=== PATIENT | male | born 1945 | race Caucasian/White ===

== ENCOUNTER 2017-11-02 23:35 | Emergency (ER) | payer OTHER ==
[~2017-11-02] VITALS: Ht 180.3 cm; Wt 64.9 kg
[2017-11-03 00:39] LABS: Basophils # (auto) 0.1 uL; Basophils % (auto) 1.5 % (0.0-2.0); Eosinophils # (auto) 0.1 uL; Eosinophils % (auto) 2.1 % (0.0-7.0); Hematocrit 35.2 % (41.0-53.0); Hemoglobin 11.9 g/dL (13.5-17.5); Lymphocytes # (auto) 1.3 uL; Lymphocytes % (auto) 18.6 % (10.0-50.0); Mean Corpuscular Hgb Conc. 33.8 g/dL (32.0-36.0); Mean Corpuscular Volume 91.5 fL (80.0-100.0); Monocytes # (auto) 0.6 uL; Monocytes % (auto) 8.5 % (0.0-12.0); Neutrophils # (auto) 4.8 uL; Neutrophils % (auto) 69.3 % (37.0-80.0); Platelet Count (auto) 226 10^3/uL (140-450); Red Blood Cells 3.84 10^6/uL (4.5-5.90); Red Cell Distribution Width 13.9 % (11.8-14.3); White Blood Cell 6.9 10^3/uL (4.4-10.8)
[2017-11-03 00:53] LABS: Alanine Aminotransferase 29 U/L (16-61); Albumin 2.8 g/dL (3.4-5.0); Anion Gap 7 (5-15); Aspartate Aminotransferase 14 U/L (15-37); BUN/Creatinine Ratio 16.9; Blood Urea Nitrogen 24 mg/dL (7-18); Calcium 8.3 mg/dL (8.5-10.1); Carbon Dioxide 26 mmol/L (21-32); Chloride 109 mmol/L (98-107); GFR African American 63 mL/min; GFR Non-African American 52 mL/min; Glucose 114 mg/dL (74-106); Potassium 3.8 mmol/L (3.5-5.1); Sodium 142 mmol/L (136-145)
[2017-11-03 00:54] LABS: INR 0.98 (0.9-1.15); Partial Thromboplastin Time 23.5 sec (22.64-33.71); Prothrombin Time 10.7 sec (9.37-12.3)
[2017-11-03 00:58] LABS: Alkaline Phosphatase 136 U/L (45-117); Bilirubin, Total 0.4 mg/dL (0.2-1.0); Total Protein 6.4 g/dL (6.4-8.2)
[2017-11-03] MEDS ORDERED: SODIUM CHLORIDE 0.9% 1,000 ML IV ONE (02:15)
[2017-11-03 02:25] LABS: Urine Bacteria NONE SEEN /hpf (None Seen); Urine Blood Negative /uL (Negative); Urine Specific Gravity 1.012 (1.001-1.035); Urine WBC 1 /hpf (0 - 3)
[2017-11-03] MEDS ORDERED: cloNIDine HCL 0.1 MG TAB ONE (02:31)
[2017-11-03] MEDS ORDERED: cloNIDine HCL 0.1 MG TAB PO ONE (02:45)
[2017-11-03] MEDS ORDERED: LABETALOL HCL 200 MG TAB PO ONE (04:00)
[2017-11-03 05:30] VITALS: BP 163/81
== END 2017-11-03 06:00 | disposition home or self-care (01) ==
LOC: EDBD 23:35 → ER 23:40
DX: R53.1 Weakness (principal); I10 Essential (primary) hypertension; E11.9 Type 2 diabetes mellitus without complications; R41.82 Altered mental status, unspecified; Z86.73 Personal history of transient ischemic attack (TIA), and cerebral infarction without residual deficits
CPT/HCPCS: 36415; 70450; 71010; 80053; 81001; 82962; 84484; 85025; 85610; 85730; 93005; 96360; 99285; J7030

== ENCOUNTER 2019-02-23 19:22 | Emergency (ER) | payer OTHER ==
[~2019-02-23] VITALS: Ht 182.9 cm; Wt 77.1 kg
[2019-02-23 19:57] LABS: Basophils # (auto) 0.1 uL; Basophils % (auto) 0.9 % (0.0-2.0); Eosinophils # (auto) 0 uL; Eosinophils % (auto) 0.6 % (0.0-7.0); Hematocrit 39.7 % (41.0-53.0); Hemoglobin 13.4 g/dL (13.5-17.5); Lymphocytes # (auto) 1.1 uL; Lymphocytes % (auto) 16.3 % (10.0-50.0); Mean Corpuscular Hemoglobin 31.3 pg (28.0-32.0); Mean Corpuscular Hgb Conc. 33.7 g/dL (32.0-36.0); Mean Corpuscular Volume 92.8 fL (80.0-100.0); Monocytes # (auto) 0.7 uL; Monocytes % (auto) 10.2 % (0.0-12.0); Platelet Count (auto) 258 10^3/uL (140-450); Red Blood Cells 4.28 10^6/uL (4.5-5.90); Red Cell Distribution Width 14.6 % (11.8-14.3); White Blood Cell 6.9 10^3/uL (4.4-10.8)
[2019-02-23 20:11] LABS: Chloride 105 mmol/L (98-107); Potassium 4.2 mmol/L (3.5-5.1); Sodium 138 mmol/L (136-145)
[2019-02-23 20:15] LABS: Albumin 2.7 g/dL (3.4-5.0); Anion Gap 6 (5-15); Blood Alcohol < 3.0 mg/dL (0-5); Blood Urea Nitrogen 26 mg/dL (7-18); Calcium 8.6 mg/dL (8.5-10.1); Carbon Dioxide 27 mmol/L (21-32); Glucose 247 mg/dL (74-106); Magnesium 2.2 mg/dL (1.6-2.6)
[2019-02-23 20:18] LABS: INR 0.99 (0.9-1.15); Partial Thromboplastin Time 24.3 sec (23.78-33.04); Prothrombin Time 10.6 sec (9.27-12.13)
[2019-02-23 20:20] LABS: Alanine Aminotransferase 27 U/L (16-61); Alkaline Phosphatase 88 U/L (45-117); Aspartate Aminotransferase 14 U/L (15-37); BUN/Creatinine Ratio 15.4; Bilirubin, Total 0.5 mg/dL (0.2-1.0); GFR African American 52 mL/min; GFR Non-African American 43 mL/min; Lactic Acid w/Reflex 2.5 mmol/L (0.4-2.0); Total Protein 6.3 g/dL (6.4-8.2)
[2019-02-24] MEDS ORDERED: SODIUM CHLORIDE 0.9% 1,000 ML IV ONE (07:45)
[2019-02-24] MEDS ORDERED: DEXTROSE 50% SYRINGE 50 ML IV ONE (09:22)
[2019-02-24 10:11] LABS: Urine Bacteria NONE SEEN /hpf (None Seen); Urine Blood 2+ /uL (Negative); Urine Hyaline Cast FEW /lpf (0 - 2); Urine Specific Gravity 1.022 (1.001-1.035); Urine WBC 20 /hpf (0 - 3)
[2019-02-24] MEDS ORDERED: DEXTROSE (50%) 50ML SYRG IV ONE (10:45)
[2019-02-24 11:27] VITALS: BP 161/89
== END 2019-02-24 12:31 | disposition critical access hospital (66) ==
LOC: ER 19:22 → EDBD 19:22 → ER 02-24 12:31
DX: R41.82 Altered mental status, unspecified (principal); E86.0 Dehydration; E11.9 Type 2 diabetes mellitus without complications; I10 Essential (primary) hypertension; N28.9 Disorder of kidney and ureter, unspecified; J32.9 Chronic sinusitis, unspecified; Z86.73 Personal history of transient ischemic attack (TIA), and cerebral infarction without residual deficits
CPT/HCPCS: 36415; 70450; 71045; 80053; 80320; 81001; 82962; 83605; 83735; 84484; 85025; 85610; 85730; 93005; 96361; 96374; 99285; J7030; J7042